=== PATIENT | female | born 1945 | race Caucasian/White ===

== ENCOUNTER 2017-06-17 19:50 | Observation (INO) | payer MEDICARE ==
[~2017-06-17] VITALS: Ht 160 cm; Wt 79.4 kg
[~2017-06-17 19:50] MED LIST: KEFLEX500 MG PO
[2017-06-17 19:59] VITALS: BP 162/80
[2017-06-17] MEDS ORDERED: PRINIVIL20 MG PO (20:06)
[2017-06-17] MEDS ORDERED: AMITRIPTYLINE100 MG PO ×2 (20:07→20:08)
[2017-06-17] MEDS ORDERED: MOBIC15 MG PO (20:08)
[2017-06-17] MEDS ORDERED: PRILOSEC 20 MG20 MG PO (20:09)
[2017-06-17 20:36] LABS: ABSOLUTE EOSINOPHILS 0.3 thou/uL (0.0-0.7); ABSOLUTE LYMPHOCYTES 0.9 thou/uL (0.8-5.3); ABSOLUTE MONOCYTES 0.5 thou/uL (0.0-1.2); ABSOLUTE NEUTROPHILS 4.6 thou/uL (1.6-8.1); BASOPHILS 0.3 %; EOSINOPHILS 4.3 %; HEMATOCRIT 37.4 % (37.0-47.0); HEMOGLOBIN 12.9 gm/dL (12.0-15.0); LYMPHOCYTES 14.1 %; MCH 31.1 pg (26.0-34.0); MCHC 34.4 g/dL (28.0-37.0); MCV 90.6 fL (80.0-100.0); MONOCYTES 7.7 %; MPV 9.4 fl. (7.2-11.1); NUCLEATED RBCS 0 /100WBC; PLATELET COUNT* 192 thou/uL (150-400); POLYS 73.6 %; RBC 4.13 mil/uL (4.20-5.00); RDW-CV 13.2 % (10.5-14.5); WBC 6.3 thou/uL (4.0-11.0)
[2017-06-17 20:55] LABS: ANION GAP 6 mmol/L (7-16); APTT 28.7 Seconds (25.0-31.3); BUN 19 mg/dL (7-18); CALCIUM 8.5 mg/dL (8.5-10.1); CHLORIDE 105 mmol/L (98-107); CO2 26 mmol/L (21-32); CREATININE 0.9 mg/dL (0.6-1.3); GLUCOSE 114 mg/dL (70-99); INR 1.1; POTASSIUM 3.6 mmol/L (3.5-5.1); PROTIME 10.7 Seconds (9.20-11.50); SODIUM 137 mmol/L (136-145)
[2017-06-17 21:05] LABS: ALBUMIN 3.6 g/dL (3.4-5.0); ALKALINE PHOSPHATASE 84 U/L (46-116); LIPASE 63 U/L (73-393); SGOT 28 U/L (15-37); SGPT 27 U/L (30-65); TOTAL BILIRUBIN 0.3 mg/dL (<0.1-1.0); TROPONIN-I LEVEL <0.06 ng/mL (<0.06)
--- NOTE | 2017-06-17 22:50 | NUR ---
Report given to the floor nurse.
[2017-06-17 23:05] VITALS: BP 151/76
[2017-06-17 23:15] VITALS: BP 151/76
[2017-06-18 04:15] VITALS: BP 124/55
--- NOTE | 2017-06-18 06:24 | NUR ---
A&O X4 CALM COOPERIIVE. SR ON THE MONITOR. REPORTS PAIN DECREASED SINCE ADMIT. NPO SINCE MIDNIGHT. SEE MAR. SEE CHARTING. VITALS WNL. FALL PRECAUTIONS IN PLACE. HOURLY ROUNDING FOR SAFETY.
[2017-06-18 07:45] VITALS: BP 124/67
--- NOTE | 2017-06-18 10:18 | EKG ---
[place] [address] ELECTROCARDIOGRAM REPORT Name: NITIN BOYER [address]#: [id number] Admission: 06/17/17 Attend Phys: Mayda Lutz Discharge: Date of : 45 Report #: [id number] THIS REPORT FOR: //name// [facility] ED Test Date: 2017-06-17 Test Time: 19:55:51 Pat Name: NITIN BOYER Department: Room: Gender: F Manager [employer]: : 1945 Requested By: Nafisa Vitale Order Number: [id number] MD: Daniel Braswell Measurements Intervals [place] Rate: 99 P: 52 OR: 149 QRS: 1 QRSD: 95 T: 72 QT: 324 QTc: 416 Interpretive Statements Sinus rhythm Probable left atrial enlargement Probable anteroseptal infarct, old Minimal ST depression, lateral leads No previous ECG available for comparison Electronically Signed On 06-18-2017 10:18:37 CDT by Daniel Braswell [email or web address] <ELECTRONICALLY SIGNED> By: Daniel Braswell MD, [facility] [phone] Daniel Braswell MD, [facility] /EPI
[2017-06-18 11:30] VITALS: BP 127/61
--- NOTE | 2017-06-18 17:32 | CARDNUC ---
[place] [address] CARDIAC NUCLEAR IMAGING REPORT Name: NITIN BOYER [address]#: [id number] Admission: 06/17/17 Attend Phys: Nir Macdonald Discharge: Date of : 45 Date of Service: 06/18/17 1732 Report #: [id number] THIS REPORT FOR: //name// APPROVED REPORT Study performed: 06/18/2017 09:35:00 Exam: Nuclear Stress Test Indication: Chest pain, Dyspnea Patient Location: In-Patient Room #: [facility] Stress Tech: Lay Rogers Stress Nurse: Aga Overton RN Ht: 5 ft 3 in Wt: 175 lbs BSA: 1.83 m2 BMI: 30.99 Medical History Medical History: HTN Medications: hydralazine, lisinopril, asa Allergies: No known drug allergies Cardiac Risk Factors: Age, HTN Exercise History: Physically active Stress Test Details Stress Test: Pharmacologic stress testing performed using 0.4 mg of regadenoson per 5 mL given IV over 10 seconds. Reason for pharmacologic stress test: physical limitation. HR Resting HR: 71 bpm Max Heart Rate (APMHR): 148 bpm Max HR Achieved: 103 bpm Target HR (85% APMHR): 125 bpm % of APMHR: 69 Recovery HR: 97 bpm BP Resting BP: 132/73 mmHg Max BP: 159/53 mmHg ECG Resting ECG: Sinus Rhythm Stress ECG: Sinus Rhythm ST Change: None Arrhythmia: None Recovery ECG: [place] [address] CARDIAC NUCLEAR IMAGING REPORT Name: NITIN BOYER [address]#: [id number] Admission: 06/17/17 Attend Phys: Nir Macdonald Discharge: Date of : 45 Date of Service: 06/18/17 1732 Report #: [id number] Change: None Recovery Arrhythmia: None Clinical Reason for Termination: Completed protocol Stress Symptoms: chest tightness Exercise duration: 0 min sec Exercise capacity: 1.0 METs The patient reported chest pain with Lexiscan infusion. EKG of perfusion images show no evidence of ischemia. Nurse Comments Patient complained of chest tightness post lexiscan, stated it was nothing like the cp that brought her into the hospital, rated it at a 3, resolved in recovery. Stress ECG Conclusion The baseline 12-lead electrocardiogram showed sinus rhythm without significant ST or T wave abnormality. EKGs obtained during and post Lexiscan infusion show sinus rhythm with no significant ST or T wave changes when compared baseline. There were no stress-induced arrhythmias. NM EXAM: Myocardial Perfusion REST/STRESS Imaging Protocol: Rest Tc-99m/Stress Tc-99m 1 day Resting Data Rest SPECT myocardial perfusion imaging was performed in supine position 45 minutes following the intravenous injection of 11.4 mCi of Tc-99m Sestamibi. Time of rest injection: 1450 Date: 06/18/2017 The images were gated to evaluate regional wall motion and calculate left ventricular ejection fraction. Administration Route: IV Administration Site: Right AC Pharmacologic Stress Pharmacologic stress test was performed by injecting Regadenoson 0.4 mg IV push followed by the intravenous injection of 34.8 mCi of Tc-99m Sestamibi. Time of stress injection: 1625 Date: 06/18/2017 Administration Route: IV Administration Site: Right AC The images were gated to evaluate regional wall motion and calculate left ventricular ejection fraction. Prone [place] [address] CARDIAC NUCLEAR IMAGING REPORT Name: NITIN BOYER Room: [address]#: [id number] Admission: 06/17/17 Attend Phys: Nir Macdonald Discharge: Date of : 45 Date of Service: 06/18/17 1732 Report #: [id number] Study Quality Study: Good Artifact: No artifact Study Data At rest, the left ventricular ejection fraction was 78%.. Post stress, the left ventricular ejection was 79%.. TID = 0.86. Perfusion Normal left ventricular perfusion. Wall Motion Normal left ventricular wall motion. Nuclear Conclusion ECG Findings: negative for ischemia Clinical Findings: non-diagnostic Nuclear Findings: negative for ischemia Exercise Capacity: not assessed Left Ventricular Function: normal Risk Study: low Myocardial perfusion images show no defect to suggest infarct or ischemia. Left ventricular systolic function is normal on gated studies. This is a low risk study. <Conclusion> The baseline 12-lead electrocardiogram showed sinus rhythm without significant ST or T wave abnormality. EKGs obtained during and post Lexiscan infusion show sinus rhythm with no significant ST or T wave changes when compared baseline. There were no stress-induced arrhythmias. <ELECTRONICALLY SIGNED> By: Rohan Kirby MD, FACC 06/18/17 [phone] Rohan Kirby MD, FACC /INF
[2017-06-18 18:29] VITALS: BP 124/67
--- NOTE | 2017-06-18 18:57 | NUR ---
RECEIVED REPORT AND ASSUMED CARE AT 0730. VSS. CARDIAC MONITORING IN PLACE. PT DENIES ANY PAIN. PT UP WITH SBA TO BATHROOM IN ROOM . PT ON RA. DISCUSSED PLAN OF CARE WITH PT, VERBALIZED UNDERSTANDING. PT SCHEDULED FOR STRESS TEST TODAY. NPO AT LUNCH. HOURLY ROUNDING COMPELTED, ALL NEEDS MET. STRESS TEST RESULTS NORMAL, DISCHARGE ORDERS PLACED IN CHART, CV CLEARED PT FOR D/C. PAPERWORK COMPLETED BY NURSING STAFF. CARDIAC MONITORING AND IV DISCONTINUED. PT DENIES ANY COMPLAINTS OF PAIN. DISCHARGE ORDERS DISCUSSED, ALL QUESTIONS AND CONCERNS ADDRESSED AT THIS TIME. ALL BELONGINGS GATHERED AND RETURNED TO PT. PT AMBULATED WITH NURSING TO BE TRANSPORTED HOME BY DAUGHTER IN PERSONAL CAR.
--- NOTE | 2017-06-22 17:42 | CON ---
[address] [address] CONSULTATION Name: NITIN BOYER Room: [address] Marily Wesley#: [id number] Admission: 06/17/17 Attend Phys: Mayda Lutz Discharge: 06/18/17 Date of : 45 Report #: [id number] THIS REPORT FOR: //name// CC: MARY physician/PCP Nohemy Macdonald DATE OF SERVICE: 06/18/2017 CARDIOLOGY CONSULTATION HISTORY OF PRESENT ILLNESS: The patient is a 72-year-old single white female who I was asked to see in the hospital today after she complained of chest pain. The patient has no previous history of heart disease. Apparently, however, she has a long history of chest pain. She is not very active because of arthritis in her knees, although she continues to garden. She notes she underwent a pharmacologic stress test about 4 years ago at [facility]. Apparently, she was told there was no evidence of heart disease. She does note about once every few weeks, she develops a pressure in her chest. It is not related to exertion or meals. Lasts for a period of time and resolves. She has had no bleeding. She does have a chronic cough. Yesterday, she was at home, felt a pressure in her chest, is worse if she took a deep breath. It is not related to exertion or meals. She had no blood in her stool. She felt like it was hard to breathe. She finally came to the Emergency Room last night, was admitted. She notes her heart has been skipping but no syncope. PAST MEDICAL HISTORY: Significant for previous knee surgery, stripping of varicose vein, gallbladder removal, foot surgery, cataract extraction. She has a history of hypertension. No history of diabetes or hyperlipidemia. MEDICATIONS: Includes amitriptyline for chronic back pain, lisinopril, meloxicam for arthritis, omeprazole for indigestion. ALLERGIES: She has no known drug allergies. FAMILY HISTORY: Her sister has a leaky heart valve. SOCIAL HISTORY: She is , lives with her daughter independence. Quit smoking years ago, rarely drinks alcohol. REVIEW OF SYSTEMS: She has had no history of stroke, asthma, peptic ulcer disease, liver disease, kidney disease, cancer. She has a history of depression. No chronic skin condition. PHYSICAL EXAMINATION: GENERAL: Revealed an elderly female lying in bed. She [place] [address] CONSULTATION Name: NITIN BOYER Room: [address] Marily Wesley#: [id number] Admission: 06/17/17 Attend Phys: Mayda Lutz Discharge: 06/18/17 Date of : 45 Report #: [id number] VITAL SIGNS: Showed a blood pressure of 120/70, pulse 70. She is afebrile. HEENT: She was anicteric, conjunctiva pink. Mucous membranes moist. NECK: Veins do not appear distended. No carotid bruits. CHEST: Clear to auscultation. CARDIOVASCULAR: Regular rate and rhythm without murmur. ABDOMEN: Soft, nontender. EXTREMITIES: Had no edema. Dorsalis pedis pulse 2+ bilaterally. SKIN: Warm and dry. NEUROLOGIC: Nonfocal. LYMPH: No adenopathy. MUSCULOSKELETAL: No joint effusion. DIAGNOSTIC DATA: Her ECG last night on admission showed a sinus rhythm, poor R-wave progression, nonspecific ST and T-wave change. Her workup, she had a portable chest x-ray in the Emergency Room last night that showed normal heart size and clear lung prescott. She actually had a CT scan of the chest in the Emergency Room last night using PE protocol that showed no pulmonary embolus, no aortic dissection. There was atelectasis. LABORATORY WORK: Sodium 136, creatinine 0.9. Her troponin was 0.06. White blood cell count 6.3, hemoglobin 12.9. IMPRESSION AND RECOMMENDATIONS: 1. Chest tightness. Atypical for angina. Recommend nuclear stress test since the patient cannot walk on a treadmill secondary to arthritis. 2. Shortness of breath. Suspect secondary to exercise intolerance. 3. Degenerative joint disease. 4. Hypertension. The patient is on an DELILAH inhibitor. 5. History of depression. <ELECTRONICALLY SIGNED> By: Daniel Braswell MD, [facility] 06/22/17 1742 1955Daniel Braswell MD, FACC /nt
== END 2017-06-18 18:42 | disposition home or self-care (01) ==
LOC: M.ERS 19:50 → M.TBA-ER 21:04 → M.2W 22:53
PROVIDERS: Personal Emergency Response Attendant; ADMIT Internal Medicine
DX: R07.89 Other chest pain (principal); I20.9 Angina pectoris, unspecified; R06.02 Shortness of breath; I10 Essential (primary) hypertension; M19.90 Unspecified osteoarthritis, unspecified site; F32.9 Major depressive disorder, single episode, unspecified; R50.9 Fever, unspecified; R05 Cough; K21.9 Gastro-esophageal reflux disease without esophagitis; Z72.89 Other problems related to lifestyle; Z87.891 Personal history of nicotine dependence; Z98.890 Other specified postprocedural states

== ENCOUNTER → 2019-04-23 | Outpatient (CLI) | payer MEDICARE ==
[~2019-04-23] MED LIST changes: +AMITRIPTYLINE100 MG PO; +COREG6.25 MG PO; +Elavil PO; +FLONASE 0.05%50 MCG NARES; +LISINOPRIL-HCT1 EAC1 PO; +MOBIC15 MG PO; +PRILOSEC10 MG PO; +PRINIVIL20 MG PO; +TRAMADOL 50 MG50 MG PO
== END ==
LOC: M.PC 04-16 09:30
DX: M17.0 Bilateral primary osteoarthritis of knee (principal); M19.072 Primary osteoarthritis, left ankle and foot; M19.071 Primary osteoarthritis, right ankle and foot; M25.552 Pain in left hip; M25.551 Pain in right hip

== ENCOUNTER → 2019-04-30 | Outpatient (CLI) | payer MEDICARE | LOC: M.MRI 07:19 | DX: M19.071 Primary osteoarthritis, right ankle and foot (principal); M19.072 Primary osteoarthritis, left ankle and foot; M17.0 Bilateral primary osteoarthritis of knee ==

== ENCOUNTER → 2019-07-16 | Outpatient (CLI) | payer MEDICARE ==
[~2019-07-16] MED LIST changes: +ASPIR 8181 M1 PO
== END | disposition home or self-care (01) ==
LOC: M.PC 04:24
PROVIDERS: ATTEND Physical Medicine & Rehabilitation
DX: M25.561 Pain in right knee (principal); M25.562 Pain in left knee; M17.0 Bilateral primary osteoarthritis of knee; M25.571 Pain in right ankle and joints of right foot; M25.572 Pain in left ankle and joints of left foot; M25.551 Pain in right hip; M25.552 Pain in left hip; I10 Essential (primary) hypertension; K21.9 Gastro-esophageal reflux disease without esophagitis; Z98.890 Other specified postprocedural states; Z90.49 Acquired absence of other specified parts of digestive tract; Z79.899 Other long term (current) drug therapy; Z87.891 Personal history of nicotine dependence

== ENCOUNTER → 2019-08-13 | Outpatient (CLI) | payer MEDICARE | END | disposition home or self-care (01) | LOC: M.PC 05:38 | PROVIDERS: ATTEND Physical Medicine & Rehabilitation | DX: M25.562 Pain in left knee (principal); M17.12 Unilateral primary osteoarthritis, left knee; I10 Essential (primary) hypertension; K21.9 Gastro-esophageal reflux disease without esophagitis; Z90.49 Acquired absence of other specified parts of digestive tract; Z98.890 Other specified postprocedural states; Z79.899 Other long term (current) drug therapy; Z79.82 Long term (current) use of aspirin; Z79.891 Long term (current) use of opiate analgesic ==

== ENCOUNTER → 2019-08-27 | Outpatient (CLI) | payer MEDICARE | LOC: M.PC 05:24 | PROVIDERS: ATTEND Physical Medicine & Rehabilitation | DX: M25.561 Pain in right knee (principal); M25.562 Pain in left knee; M25.551 Pain in right hip; M25.552 Pain in left hip; M79.671 Pain in right foot; M79.672 Pain in left foot; F10.10 Alcohol abuse, uncomplicated; Z87.891 Personal history of nicotine dependence ==